=== PATIENT | female | born 2000 | race Caucasian/White ===

== ENCOUNTER 2020-10-14 00:50 | Emergency (ER) | payer OTHER ==
[~2020-10-14] VITALS: Ht 162.6 cm; Wt 65.3 kg
[2020-10-14 00:54] VITALS: BP 119/65
--- NOTE | 2020-10-14 01:00 | NUR ---
PT AMUBULATED TO BED #6
[2020-10-14] MEDS ORDERED: NACL 0.9% 1,000 ML IV ONE (01:05)
--- NOTE | 2020-10-14 01:15 | NUR ---
COVERING PRIMARY RN FOR LUNCH RELIEF. SEE COMPLETE ASSESSMENT
--- NOTE | 2020-10-14 02:00 | NUR ---
Patient sitting in bed locked in lowest position, HOB slightly elevated. Breathing even and unlabored. Patient denies any pain. NAD, will continue to monitor.
--- NOTE | 2020-10-14 02:43 | NUR ---
Dr. Luz examining patient.
[2020-10-14] MEDS ORDERED: IBUP-2213 PO (02:51)
[2020-10-14] MEDS ORDERED: CIPR500T4 PO (02:51)
[2020-10-14 03:12] VITALS: BP 119/65
--- NOTE | 2020-10-14 03:12 | NUR ---
Patient discharged with v/s stable. Written and verbal after care instructions given and explained. Patient alert, oriented and verbalized understanding of instructions. Ambulatory with steady gait. All questions addressed prior to discharge. ID band removed. Patient advised to follow up with PMD. Rx of Cipro,Ibuprofen given. Patient educated on indication of medication including possible reaction and side effects. Opportunity to ask questions provided and answered.
== END 2020-10-14 03:12 | disposition home or self-care (01) ==
LOC: MED 00:50
DX: N39.0 Urinary tract infection, site not specified (principal); F17.200 Nicotine dependence, unspecified, uncomplicated
CPT/HCPCS: 81002; 81025; 96360; 99283; J7030